=== PATIENT | male | born 1985 | race Caucasian/White ===

== ENCOUNTER 2016-11-01 01:53 | Emergency (ER) | payer OTHER ==
--- NOTE | 2016-11-01 03:54 | ED CLINICAL REPORT ---
Clinical Report - Physicians/Mid Levels [facility] [address] [place] [address] 11/01/2016 1:54 Patient: JIMY ELLISON Arrived- By private vehicle. Historian- patient. HISTORY OF PRESENT ILLNESS Chief Complaint: ABDOMINAL PAIN. At its maximum, severity described as severe. When seen in the E.D., severity described as severe. Modifying factors- worsened by movement. Relieved by rest. This started today and is still present and worsening. It was abrupt in onset and has been waxing/waning but is not gone now. It is described as "pain" and sharp. No radiation. It is described as located in the left flank. The patient has had nausea and vomiting. No loss of appetite or diarrhea. No additional abdominal pain. No recent travel. Similar symptoms previously: None. Recent medical care: Not recently seen/assessed. REVIEW OF SYSTEMS No constipation or black stools. All systems otherwise negative, except as recorded above. PAST HISTORY See nurses notes. Medications: None. Allergies: No Known Drug Allergy. SOCIAL HISTORY Never smoker. History of occasional drug use: marijuana. No alcohol use. Is a local resident. FAMILY HISTORY (states someone in the family may have kidney stones but is not sure). ADDITIONAL NOTES The nursing notes have been reviewed. PHYSICAL EXAM Vital Signs: 11/01/2016 01:59 BP: 146/94. HR: 56. RR: 20. O2 saturation: 100%. Temp: 98 F. Blood pressure normal. Oxygen saturation normal. Appearance: Alert. Oriented X3. Patient in mild distress. (non-toxic). Eyes: Pupils equal, round and reactive to light. Eyes normal inspection. ENT: Ears normal. Nose normal. Pharynx normal. Neck: Normal inspection. Neck supple. CVS: Normal heart rate and rhythm. Heart sounds normal. Pulses normal. Respiratory: No respiratory distress. Breath sounds normal. Chest nontender. Abdomen: Soft and nontender. Bowel sounds normal. No organomegaly. No mass. Back: Normal inspection. Mild CVA tenderness on the left. (no midline tenderness or overlying skin changes). Skin: Skin warm and dry. Normal skin color. No rash. Normal skin turgor. Extremities: Extremities exhibit normal ROM. No lower extremity edema. LABS, X-RAYS, AND EKG Abdominal CT: PROCEDURE: CT ABDOMEN/PELVIS W/O CONTRAST INDICATION: ABDOMINAL PAIN TECHNIQUE: Noncontrast axial images with sagittal and coronal reformations. Preliminary report provided by Jolly Alicia MD ([facility]). COMPARISON: None. FINDINGS: ABDOMEN: There is mild left hydronephrosis and hydroureter with a 1.5 mm calculus which is now located the urinary bladder. There is a 0.5 mm nonobstructing left renal calculus. Right kidney and ureter are normal. Gallbladder, liver, spleen, pancreas, and aorta are normal. Bowel pattern is normal. Appendix is not identified, but no evidence of inflammatory process. PELVIS: Pelvic structures are normal. IMPRESSION: 1. There is mild left hydronephrosis and hydroureter secondary to a 1.5 mm calculus which has now passed into the urinary bladder. Study type: abdomen and pelvis. Abdominal CT performed without contrast. The study was independently viewed by me, interpreted by the radiologist and discussed with the radiologist. Laboratory Tests: UA-Culture if indicated: (WILLEM: 11/01/2016 02:20) ( MsgRcvd 11/01/2016 02:41) Final results Test Result Flag Units (Reference) URINE COLOR YELLOW URINE APPEARANCE CLEAR URINE GLUCOSE NEGATIVE (NEGATIVE) URINE BILIRUBIN NEGATIVE (NEGATIVE) URINE KETONE NEGATIVE (NEGATIVE) URINE SPECIFIC GRAVITY >= 1.030 (1.010-1.030) URINE PH 6.0 (5.0-8.0) URINE PROTEIN NEGATIVE (NEGATIVE) URINE UROBILINOGEN 0.2 EU/dL (0.2-1.0) URINE NITRITE NEGATIVE (NEGATIVE) URINE BLOOD 3+ (NEGATIVE) URINE LEUK ESTERASE NEGATIVE (NEGATIVE) URINE RBC 1-3 rbc/hpf (0-1) URINE WBC RARE wbc/hpf (0-1) URINE EPITHELIAL CELLS NONE SEEN EPI/hpf (0-5) URINE BACTERIA NONE SEEN (NONE SEEN) URINE COMMENT CULT NOT INDICATED 3+ MUCUSURINE CULTURES ARE SET-UP BASED ON THE FOLLOWING CRITERIA:POSITIVE NITRITEPOSITIVE LEUKOCYTE ESTERASEGREATER THAN 10 WHITE BLOOD CELLSMODERATE (2+) OR GREATER BACTERIA CBC w Diff: (WILLEM: 11/01/2016 02:20) ( MsgRcvd 11/01/2016 02:38) Final results Test Result Flag Units (Reference) WHITE BLOOD COUNT 7.8 K/uL (4.5-11.5) RED BLOOD COUNT 5.09 M/uL (4.50-5.90) HEMOGLOBIN 15.0 gm/dL (13.5-17.5) HEMATOCRIT 44.5 % (41.0-53.0) MEAN CELL VOLUME 88 fL (80-100) MEAN CORPUSCULAR HGB 30 pg (26-34) MEAN CORPUSCULAR HGB CONC 34 g/dL (31-37) RED CELL DISTRIBUTION WIDTH 12.3 % (11.6-14.8) PLATELET COUNT 201 K/uL (150-400) NEUTROPHIL % 56.2 % (50-75) LYMPH % 30.4 % (25-40) MONO % 7.3 % (3-14) EOSINOPHIL % 5.6 H % (0-4) BASOPHIL % 0.5 % (0-2) BMP: (WILLEM: 11/01/2016 02:20) ( MsgRcvd 11/01/2016 02:42) Final results Test Result Flag Units (Reference) GLUCOSE 121 H mg/dL (70-110) BUN 15 mg/dL (7-18) CREATININE 1.0 mg/dL (0.6-1.3) Estimated GFR >60 mL/min Estimated GFR- >60 mL/min Note: Persistent reduction over 3 months in eGFR<60 mL/min/1.73 m2 defines CKD. Patients with eGFR values>=60 mL/min/1.73 m2 may also have CKD if evidence ofpersistent proteinuria. Additional information may be foundat www.kidney.org. SODIUM 141 mmol/L (136-145) POTASSIUM 3.4 L mmol/L (3.5-5.1) CHLORIDE 103 mmol/L (98-107) CARBON DIOXIDE 29 mmol/L (21-32) CALCIUM 9.3 mg/dL (8.5-10.1) . PROGRESS AND PROCEDURES Course of Care: the patient is a pleasant 31-year-old male with no pending past medical history presenting for revised and left-sided flank pain. Working diagnosis at this time is renal colic. We'll also evaluate for urinary tract infection, or other causes for the patient's left-sided flank pain. Do not feel patient has abdominal aortic aneurysm. Signs and symptoms are not consistent with thispathology. Patient is agreeable to the treatment plan. Medications for the nausea and pain and been ordered. Workup shows patient to have passed a 1.5 mm calculus. There is residual hydronephrosis and hydroureter in the left side of the urinary tract. Patient reports significant improvement of pain. Urinalysis also shows hematuria. Had discussion with patient in regards to the symptoms of his pain today. Because the patient's pain has been controlled and patient is found to have stone, did not feel patient needs to be admittedor car further emergency department evaluation or workup. Referral for urology provided. Patient is to have the hematuria evaluated again. Discussed the patient workup, diagnosis, home care, follow-up, and return depressions. All questions answered. The patient expressed understanding of these instructions and was agreeable to them. Disposition: Discharged. Condition: good. CLINICAL IMPRESSION Microscopic hematuria (acute). Ureterolithiasis (single stone) in the left ureter with hydronephrosis. INSTRUCTIONS Warnings: GENERAL WARNINGS: Return or contact your physician immediately if your condition worsens or changes unexpectedly, if not improving as expected, or if other problems arise. SPECIFICALLY, return if you develop pain, fever, vomiting, the inability to keep fluids down, blood in vomitus, blood in diarrhea, fainting or lightheadedness. Your Current Medications: CONTINUE TAKING THE FOLLOWING MEDICATIONS: None*. Prescription Medications: Motrin 600 mg tablets: take 1 tablet orally every 6 hours as needed for pain. Dispense thirty (30). No refill. Substitution is permissible. (take with food) Percocet 5 mg/325 mg: take 1 tablet orally every 6 hours as needed for pain. Dispense fifteen (15). No refill. Substitution is permissible. Follow-up: Return to the emergency department as needed. Follow up with your doctor in three days. Reason for referral: recheck today's concerns. Summary of care provided to patient via paper. Screening today revealed the patient's blood pressure to be in the normal range. The patient should follow up with a primary care provider for blood pressure management. Understanding of the discharge instructions verbalized by patient. Follow-up with: Ra Hall MD, Urology, , [address] [place] [address], [id number] Follow up in one week. Reason for referral: recheck today's concerns. Summary of care provided to patient via paper. (Electronically signed by Eliseo Timmons Dr. 11/05/2016 5:03)
--- NOTE | 2016-11-01 03:55 | ED NURSING NOTES ---
Clinical Report - Nurses [facility] [address] [place] [address] 11/01/2016 1:54 Patient: JIMY ELLISON TRIAGE Triage time 0159. Acuity: LEVEL 3. Chief Complaint: NAUSEA and VOMITING and FLANK PAIN. --02:03 Desmond Kay R.N. 01:59 11/01/16. BP: 146/94. HR: 56. RR: 20. O2 saturation: 100%. Temp: 98 F. Pain level now 07/27. --02:03 Desmond Kay R.N. Weight: 74.8 kg stated. Height/Length: 72 inches Per Patient. BMI: 22.4. --02:01 Desmond Kay R.N. Medications None. --02:00 Desmond Kay R.N. Allergies No Known Drug Allergy. --02:00 Desmond Kay R.N. History Arrived by private vehicle. Historian: patient. Unaccompanied. This started just prior to arrival. He has had nausea and vomiting. Last oral intake by patient was (1 hours ago). 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 SOCIAL HX: History of drug use: marijuana. FALL RISK ASSESSMENT: Fall risk assessment completed. No fall risk identified. NUTRITIONAL RISK ASSESSMENT: The nutritional risk assessment revealed no deficiencies. FUNCTIONAL ASSESSMENT: Functional assessment: no impairments noted. LEARNING NEEDS ASSESSMENT: The learning needs assessment revealed no barriers. SKIN INTEGRITY ASSESSMENT: Skin integrity risk assessment completed. No skin integrity risk identified. --02:03 Desmond Kay R.N. PROBLEMS: Nephrolithiasis. --02:01 Desmond Kay R.N. ADDITIONAL SURGERIES: Appendectomy. --02:01 Desmond Kay R.N. Interventions ID band on patient. --02:03 Desmond Kay R.N. PHYSICAL ASSESSMENT GENERAL / NEURO / PSYCH: Alert. Oriented X 4. Appears in distress. HEENT: Mucous membranes are pink. RESPIRATORY: Respirations not labored. Breath sounds within normal limits. CVS: Capillary refill less than 2 seconds. GI / : Abdomen soft. SKIN: Skin is warm and dry. --02:03 Desmond Kay R.N. Ambulatory to room. --02: Desmond Kay R.N. NURSING PROGRESS NOTES Head of bed elevated. Reassurance given. Patient identifiers checked. Call light placed in reach. Bed placed in lowest position. Brakes of bed on. --02: Desmond Kay R.N. 02:11/01/2016 Site #1 started via IV in the left antecubital space with an 18g angiocath, with aseptic technique and good blood return; one attempt. Blood drawn: rainbow set. Labeled in the presence of the patient and sent to the lab. Saline lock flushed with saline. --02: Desmond Kay R.N. 02:11/01/2016 Zofran (Ondansetron HCl) IVP 4 mg given. via site #1. Allergies verified and confirmed 5 rights. IV patency established. IV site checked: no pain, redness, or swelling. IV flushed thoroughly pre- and post-medication administration. --: Desmond Kay R.N. 02:11/01/2016 Morphine IVP 4 mg given. via site #1. Allergies verified, confirmed 5 rights and sedative warning given to the patient. IV patency established. IV site checked: no pain, redness, or swelling. IV flushed thoroughly pre- and post-medication administration. --: Desmond Kay R.N. 02:11/01/2016 Started bag #1 1000 mL IV Fluids IV NS (Saline); bolus of 1000 mL wide open via site #1. Allergies verified and confirmed 5 rights. IV patency established. IV site checked: no pain, redness, or swelling. IV flushed thoroughly pre- and post-medication administration. --02: Desmond Kay R.N. 03:07 11/01/2016 Toradol IVP 30 mg given. via site #1. Allergies verified and confirmed 5 rights. IV patency established. IV site checked: no pain, redness, or swelling. IV flushed thoroughly pre- and post-medication administration. --03:07 Desmond Kay R.N. DISPOSITION / DISCHARGE 04:09 11/01/2016 Site #1 removed upon discharge. Pressure dressing applied. --04:09 Desmond Kay R.N. Departure time: 0405. No learning barriers present. Discharge instructions provided and reviewed with the patient. Reviewed warnings. Reviewed medication(s). Treatments reviewed. Reviewed referrals. Reviewed diet. Patient verbalized understanding. Written instructions provided in Andorran. The patient was discharged by the physician. He was discharged home and unaccompanied at time of discharge. He left the Emergency Department ambulatory and via private vehicle. Patient driving. --04:10 Desmond Kay R.N. Condition at departure: improved. --04:10 Desmond Kay R.N. FALL RISK ASSESSMENT: Fall risk assessment completed. No fall risk identified. --04:10 Desmond Kay R.N. Locked/Released at 11/01/2016 4:10 by Desmond Kay R.N.
--- NOTE | 2016-11-01 03:55 | ED NURSING NOTES ---
Clinical Report - Nurses [facility] [address] [place] [address] 11/01/2016 1:54 Patient: JIMY ELLISON TRIAGE Triage time 0159. Acuity: LEVEL 3. Chief Complaint: NAUSEA and VOMITING and FLANK PAIN. --02:03 Desmond Kay R.N. 01:59 11/01/16. BP: 146/94. HR: 56. RR: 20. O2 saturation: 100%. Temp: 98 F. Pain level now 07/27. --02:03 Desmond Kay R.N. Weight: 74.8 kg stated. Height/Length: 72 inches Per Patient. BMI: 22.4. --02:01 Desmond Kay R.N. Medications None. --02:00 Desmond Kay R.N. Allergies No Known Drug Allergy. --02:00 Demsond Kay R.N. History Arrived by private vehicle. Historian: patient. Unaccompanied. This started just prior to arrival. He has had nausea and vomiting. Last oral intake by patient was (1 hours ago). 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 SOCIAL HX: History of drug use: marijuana. FALL RISK ASSESSMENT: Fall risk assessment completed. No fall risk identified. NUTRITIONAL RISK ASSESSMENT: The nutritional risk assessment revealed no deficiencies. FUNCTIONAL ASSESSMENT: Functional assessment: no impairments noted. LEARNING NEEDS ASSESSMENT: The learning needs assessment revealed no barriers. SKIN INTEGRITY ASSESSMENT: Skin integrity risk assessment completed. No skin integrity risk identified. --02:03 Desmond Kay R.N. PROBLEMS: Nephrolithiasis. --02:01 Desmond Kay R.N. ADDITIONAL SURGERIES: Appendectomy. --02:01 Desmond Kay R.N. Interventions ID band on patient. --02:03 Desmond Kay R.N. PHYSICAL ASSESSMENT GENERAL / NEURO / PSYCH: Alert. Oriented X 4. Appears in distress. HEENT: Mucous membranes are pink. RESPIRATORY: Respirations not labored. Breath sounds within normal limits. CVS: Capillary refill less than 2 seconds. GI / : Abdomen soft. SKIN: Skin is warm and dry. --02:03 Desmond Kay R.N. Ambulatory to room. --02: Desmond Kya R.N. NURSING PROGRESS NOTES Head of bed elevated. Reassurance given. Patient identifiers checked. Call light placed in reach. Bed placed in lowest position. Brakes of bed on. --02: Desmond Kay R.N. 02:11/01/2016 Site #1 started via IV in the left antecubital space with an 18g angiocath, with aseptic technique and good blood return; one attempt. Blood drawn: rainbow set. Labeled in the presence of the patient and sent to the lab. Saline lock flushed with saline. --02: Desmond Kay R.N. 02:11/01/2016 Zofran (Ondansetron HCl) IVP 4 mg given. via site #1. Allergies verified and confirmed 5 rights. IV patency established. IV site checked: no pain, redness, or swelling. IV flushed thoroughly pre- and post-medication administration. --: Desmond Kay R.N. 02:11/01/2016 Morphine IVP 4 mg given. via site #1. Allergies verified, confirmed 5 rights and sedative warning given to the patient. IV patency established. IV site checked: no pain, redness, or swelling. IV flushed thoroughly pre- and post-medication administration. --: Desmond Kay R.N. 02:11/01/2016 Started bag #1 1000 mL IV Fluids IV NS (Saline); bolus of 1000 mL wide open via site #1. Allergies verified and confirmed 5 rights. IV patency established. IV site checked: no pain, redness, or swelling. IV flushed thoroughly pre- and post-medication administration. --02: Desmond Kay R.N. 03:07 11/01/2016 Toradol IVP 30 mg given. via site #1. Allergies verified and confirmed 5 rights. IV patency established. IV site checked: no pain, redness, or swelling. IV flushed thoroughly pre- and post-medication administration. --03:07 Desmond Kay R.N. DISPOSITION / DISCHARGE 04:09 11/01/2016 Site #1 removed upon discharge. Pressure dressing applied. --04:09 Desmond Kay R.N. Departure time: 0405. No learning barriers present. Discharge instructions provided and reviewed with the patient. Reviewed warnings. Reviewed medication(s). Treatments reviewed. Reviewed referrals. Reviewed diet. Patient verbalized understanding. Written instructions provided in Solomon Islander. The patient was discharged by the physician. He was discharged home and unaccompanied at time of discharge. He left the Emergency Department ambulatory and via private vehicle. Patient driving. --04:10 Desmond Kay R.N. Condition at departure: improved. --04:10 Desmond Kay R.N. FALL RISK ASSESSMENT: Fall risk assessment completed. No fall risk identified. --04:10 Desmond Kay R.N. Locked/Released at 11/01/2016 4:10 by Desmond Kay R.N.
--- NOTE | 2016-11-01 03:55 | ED ORDER SUMMARY ---
..... Patient: JIMY ELLISON OrderSheet [facility] VisitID: [id number] [address] [place] [address] 31y, M Registration Date/Time: 11/01/2016 ORDER SHEET Weight: 74.8 kg (stated) Allergies: No Known Drug Allergy GENERAL ORDERS: CT Abd/Pel wo Cont Urgent (02:12 11/01/2016 Clinton Orellana) (2:32 RFay) CBC w Diff Urgent (02:11/01/2016 Clinton Orellana) (2:26 Eleazar R.N.) BMP Urgent (02:11/01/2016 Clinton Orellana) (2:26 Eleazar R.N.) UA-Culture if indicated Urgent (02:11/01/2016 Clinton Orellana) (2:26 Eleazar Dan.N.) Pulse oximeter (02:11/01/2016 Clinton Orellana) (2:26 Eleazar R.N.) MEDICATION ORDERS: IV FLUIDS: IV NS : initial bolus 1000 mL (1000 mL/hr), then none - for X1 (NOW) (02:11 11/01/2016 Clinton Orellana) (2:27 Eleazar R.N.) Morphine IV 4 mg (HIGH ALERT MEDICATION, NOW) (02:12 11/01/2016 Clinton Orellana) (2:27 Eleazar R.N.) Zofran IV 4 mg (NOW) (02:12 11/01/2016 Clinton Orellana) (2:27 Eleazar R.N.) Toradol IV 30 mg (NOW) (03:06 11/01/2016 Clinton Orellana) (3:07 Eleazar R.N.) ORDER SHEET NOTES: [Electronically signed by Desmond Kay R.N. (04:11/01/2016)] [Electronically signed by Eliseo Timmons Dr. (05:03 11/05/2016)] [Electronically locked/signed by Desmond Kay R.N. (04:11/01/2016)]
--- NOTE | 2016-11-01 03:55 | ED ORDER SUMMARY ---
..... Patient: JIMY LELISON OrderSheet [facility] VisitID: [id number] [address] [place] [address] 31y, M Registration Date/Time: 11/01/2016 ORDER SHEET Weight: 74.8 kg (stated) Allergies: No Known Drug Allergy GENERAL ORDERS: CT Abd/Pel wo Cont Urgent (02:12 11/01/2016 Clinton Orellana) (2:32 RFay) CBC w Diff Urgent (02:11/01/2016 Clinton Orellana) (2:26 Eleazar R.N.) BMP Urgent (02:11/01/2016 Clinton Orellana) (2:26 Eleazar R.N.) UA-Culture if indicated Urgent (02:11/01/2016 Clinton Orellana) (2:26 Eleazar Dan.N.) Pulse oximeter (02:11/01/2016 Clinton Orellana) (2:26 Eleazar R.N.) MEDICATION ORDERS: IV FLUIDS: IV NS : initial bolus 1000 mL (1000 mL/hr), then none - for X1 (NOW) (02:11 11/01/2016 Clinton Orellana) (2:27 Eleazar R.N.) Morphine IV 4 mg (HIGH ALERT MEDICATION, NOW) (02:12 11/01/2016 Clinton Orellana) (2:27 Eleazar R.N.) Zofran IV 4 mg (NOW) (02:12 11/01/2016 Clinton Orellana) (2:27 Eleazar R.N.) Toradol IV 30 mg (NOW) (03:06 11/01/2016 Clinton Orellana) (3:07 Eleazar R.N.) ORDER SHEET NOTES: [Electronically signed by Desmond Kay R.N. (04:11/01/2016)] [Electronically signed by Eliseo Timmons Dr. (05:03 11/05/2016)] [Electronically locked/signed by Desmond Kay R.N. (04:11/01/2016)]
--- NOTE | 2016-11-01 05:40 | DIAGNOSTIC IMAGING REPORT ---
PROCEDURE: CT ABDOMEN/PELVIS W/O CONTRAST INDICATION: ABDOMINAL PAIN TECHNIQUE: Noncontrast axial images with sagittal and coronal reformations. Preliminary report provided by Jolly Alicia MD ([facility]). COMPARISON: None. FINDINGS: ABDOMEN: There is mild left hydronephrosis and hydroureter with a 1.5 mm calculus which is now located the urinary bladder. There is a 0.5 mm nonobstructing left renal calculus. Right kidney and ureter are normal. Gallbladder, liver, spleen, pancreas, and aorta are normal. Bowel pattern is normal. Appendix is not identified, but no evidence of inflammatory process. PELVIS: Pelvic structures are normal. IMPRESSION: 1. There is mild left hydronephrosis and hydroureter secondary to a 1.5 mm calculus which has now passed into the urinary bladder. 2. Findings discussed Dr. Eliseo Timmons. All CT scans at this facility use dose modulation, iterative reconstruction, and/or weight-based dosing when appropriate to reduce radiation dose to as low as reasonably achievable.
--- NOTE | 2016-11-01 05:40 | DIAGNOSTIC IMAGING REPORT ---
PROCEDURE: CT ABDOMEN/PELVIS W/O CONTRAST INDICATION: ABDOMINAL PAIN TECHNIQUE: Noncontrast axial images with sagittal and coronal reformations. Preliminary report provided by Jolly Alicia MD ([facility]). COMPARISON: None. FINDINGS: ABDOMEN: There is mild left hydronephrosis and hydroureter with a 1.5 mm calculus which is now located the urinary bladder. There is a 0.5 mm nonobstructing left renal calculus. Right kidney and ureter are normal. Gallbladder, liver, spleen, pancreas, and aorta are normal. Bowel pattern is normal. Appendix is not identified, but no evidence of inflammatory process. PELVIS: Pelvic structures are normal. IMPRESSION: 1. There is mild left hydronephrosis and hydroureter secondary to a 1.5 mm calculus which has now passed into the urinary bladder. 2. Findings discussed Dr. Eliseo Timmons. All CT scans at this facility use dose modulation, iterative reconstruction, and/or weight-based dosing when appropriate to reduce radiation dose to as low as reasonably achievable.
--- NOTE | 2016-11-05 05:03 | ED MAR SUMMARY ---
..... Medication Administration Record [facility] [address] [place] [address] Patient: JIMY ELLISON Visit ID: [id number] 31y, M Weight: 74.8 kg Height/Length: 72 in BMI: 22.4 ALLERGIES: No Known Drug Allergy Start 02:11/01/2016 Desmond Kay R.N. Medication Administered: IV NS (SALINE), Dose: IV Fluids, Bolus: 1000 mL wide open, Dispensed: 1000 mL bag, Site: #1 left AC. Medication Ordered: IV NS : initial bolus 1000 mL (1000 mL/hr), then none - for X1 (NOW). Given 02:11/01/2016 Desmond Kay R.N. Medication Administered: MORPHINE [IVP], Dose: 4 mg IVP, Site: #1 left AC. Medication Ordered: Morphine IV 4 mg (HIGH ALERT MEDICATION, NOW). Given 02:11/01/2016 Desmond Kay R.N. Medication Administered: ZOFRAN [IVP] (ONDANSETRON HCL), Dose: 4 mg IVP, Site: #1 left AC. Medication Ordered: Zofran IV 4 mg (NOW). Given 03:11/01/2016 Desmond Kay R.N. Medication Administered: TORADOL [IVP], Dose: 30 mg IVP, Site: #1 left AC. Medication Ordered: Toradol IV 30 mg (NOW).
--- NOTE | 2016-11-05 05:03 | ED DISCHARGE INSTRUCTIONS ---
Patient: JIMY ELLISON General Instructions [facility] VisitID: [id number] [place] [address] 31y, M Registration Date/Time: 11/01/2016 Microscopic hematuria (acute). Ureterolithiasis (single stone) in the left ureter with hydronephrosis. INSTRUCTIONS Warnings: GENERAL WARNINGS: Return or contact your physician immediately if your condition worsens or changes unexpectedly, if not improving as expected, or if other problems arise. SPECIFICALLY, return if you develop pain, fever, vomiting, the inability to keep fluids down, blood in vomitus, blood in diarrhea, fainting or lightheadedness. Your Current Medications: CONTINUE TAKING THE FOLLOWING MEDICATIONS: None*. Prescription Medications: Motrin 600 mg tablets: take 1 tablet orally every 6 hours as needed for pain. Dispense thirty (30). No refill. Substitution is permissible. (take with food) Percocet 5 mg/325 mg: take 1 tablet orally every 6 hours as needed for pain. Dispense fifteen (15). No refill. Substitution is permissible. Follow-up: Return to the emergency department as needed. Follow up with your doctor in three days. Reason for referral: recheck today's concerns. Summary of care provided to patient via paper. Screening today revealed the patient's blood pressure to be in the normal range. The patient should follow up with a primary care provider for blood pressure management. Understanding of the discharge instructions verbalized by patient. Follow-up with: Ra Hall MD, Urology, , [address] [place], [place] [id number] Follow up in one week. Reason for referral: recheck today's concerns. Summary of care provided to patient via paper. ADDITIONAL INFORMATION Blood In The Urine Blood in the urine ("hematuria") has many possible causes. If it occurs after an injury (such as a car accident or fall), it is most often a sign of bruising to the kidney or bladder. Common medical causes of blood in the urine include urinary tract infection, kidney stone, inflammation, tumors, or certain other diseases of the kidney or bladder. Menstruation can cause blood to appear in the urine sample, although it is not coming from the urinary tract. If only a trace amount of blood is present, it will show up on the urine test, even though the urine may be yellow and not pink or red. This may occur with any of the above conditions, as well as heavy exercise or high fever. In this case, your doctor may want to repeat the urine test on another day. This will show if the blood is still present. If so, then other tests can be done to find out the cause. Home Care: If your urine does not appear bloody (pink, brown or red) then you do not need to restrict your activity in any way. If you can see blood in your urine, rest and avoid heavy exertion until your next exam. Do not use aspirin or anti-inflammatory medicine like ibuprofen (Motrin, Advil) or naproxen (Naprosyn, Aleve). These thin the blood and may increase bleeding. Follow Up with your doctor or as advised by our staff. If you were injured and had blood in your urine, you should have a repeat urine test in 1-2 days. Contact your doctor or return to this facility for this test. [NOTE: A radiologist will review any X-rays that were taken. We will notify you of any new findings that may affect your care.] Get Prompt Medical Attention if any of the following occur: Bright red blood or blood clots in the urine (if a new symptom) Weakness, dizziness or fainting New groin, abdominal or back pain Fever of 100.4F (38C) or higher, or as directed by your healthcare provider Repeated vomiting Bleeding from nose, gums or easy bruising Ibuprofen Oral tablet What is this medicine? IBUPROFEN (eye BYOO proe fen) is a non-steroidal anti-inflammatory drug (NSAID). It is used for dental pain, fever, headaches or migraines, osteoarthritis, rheumatoid arthritis, or painful monthly periods. It can also relieve minor aches and pains caused by a cold, flu, or sore throat. How should I use this medicine? Take this medicine by mouth with a glass of water. Follow the directions on the prescription label. Take this medicine with food if your stomach gets upset. Try to not lie down for at least 10 minutes after you take the medicine. Take your medicine at regular intervals. Do not take your medicine more often than directed. A special MedGuide will be given to you by the pharmacist with each prescription and refill. Be sure to read this information carefully each time. Talk to your plant breeder regarding the use of this medicine in children. Special care may be needed. What side effects may I notice from receiving this medicine? Side effects that you should report to your doctor or health urgent care physician assistant as soon as possible: allergic reactions like skin rash, itching or hives, swelling of the face, lips, or tongue black or bloody stools, blood in the urine or in vomit breathing problems changes in vision chest pain general ill feeling or flu-like symptoms nausea or vomiting redness, blistering, peeling or loosening of the skin, including inside the mouth slurred speech or weakness on one side of the body stomach pain unexplained weight gain or swelling unusually weak or tired yellowing of eyes or skin Side effects that usually do not require medical attention (report to your doctor or health urgent care physician assistant if they continue or are bothersome): constipation or diarrhea dizziness gas or heartburn stomach upset What may interact with this medicine? Do not take this medicine with any of the following medications: cidofovir ketorolac methotrexate pemetrexed This medicine may also interact with the following medications: alcohol aspirin diuretics lithium other drugs for inflammation like prednisone warfarin What if I miss a dose? If you miss a dose, take it as soon as you can. If it is almost time for your next dose, take only that dose. Do not take double or extra doses. Where should I keep my medicine? Keep out of the reach of children. Store at room temperature between 15 and 30 degrees C (59 and 86 degrees F). Keep container tightly closed. Throw away any unused medicine after the expiration date. What should I tell my health care provider before I take this medicine? They need to know if you have any of these conditions: asthma cigarette smoker drink more than 3 alcohol containing drinks a day heart disease or circulation problems such as heart failure or leg edema (fluid retention) high blood pressure kidney disease liver disease stomach bleeding or ulcers an unusual or allergic reaction to ibuprofen, aspirin, other NSAIDS, other medicines, foods, dyes, or preservatives or trying to get breast-feeding What should I watch for while using this medicine? Tell your doctor or healthcare professional if your symptoms do not start to get better or if they get worse. This medicine does not prevent heart attack or stroke. In fact, this medicine may increase the chance of a heart attack or stroke. The chance may increase with longer use of this medicine and in people who have heart disease. If you take aspirin to prevent heart attack or stroke, talk with your doctor or health urgent care physician assistant. Do not take other medicines that contain aspirin, ibuprofen, or naproxen with this medicine. Side effects such as stomach upset, nausea, or ulcers may be more likely to occur. Many medicines available without a prescription should not be taken with this medicine. This medicine can cause ulcers and bleeding in the stomach and intestines at any time during treatment. Ulcers and bleeding can happen without warning symptoms and can cause . To reduce your risk, do not smoke cigarettes or drink alcohol while you are taking this medicine. You may get drowsy or dizzy. Do not drive, use machinery, or do anything that needs mental alertness until you know how this medicine affects you. Do not stand or sit up quickly, especially if you are an older patient. This reduces the risk of dizzy or fainting spells. This medicine can cause you to bleed more easily. Try to avoid damage to your teeth and gums when you brush or floss your teeth. Oxycodone Hydrochloride, Acetaminophen Oral tablet What is this medicine? ACETAMINOPHEN; OXYCODONE (a set a ANASTASIA jannie fen; ox i KOE done) is a pain reliever. It is used to treat mild to moderate pain. How should I use this medicine? Take this medicine by mouth with a full glass of water. Follow the directions on the prescription label. Take your medicine at regular intervals. Do not take your medicine more often than directed. Talk to your plant breeder regarding the use of this medicine in children. Special care may be needed. Patients over 65 years old may have a stronger reaction and need a smaller dose. What side effects may I notice from receiving this medicine? Side effects that you should report to your doctor or health urgent care physician assistant as soon as possible: allergic reactions like skin rash, itching or hives, swelling of the face, lips, or tongue breathing difficulties, wheezing confusion light headedness or fainting spells severe stomach pain yellowing of the skin or the whites of the eyes Side effects that usually do not require medical attention (report to your doctor or health urgent care physician assistant if they continue or are bothersome): dizziness drowsiness nausea vomiting What may interact with this medicine? alcohol antihistamines barbiturates like amobarbital, butalbital, butabarbital, methohexital, pentobarbital, phenobarbital, thiopental, and secobarbital benztropine drugs for bladder problems like solifenacin, trospium, oxybutynin, tolterodine, hyoscyamine, and methscopolamine drugs for breathing problems like ipratropium and tiotropium drugs for certain stomach or intestine problems like propantheline, homatropine methylbromide, glycopyrrolate, atropine, belladonna, and dicyclomine general anesthetics like etomidate, ketamine, nitrous oxide, propofol, desflurane, enflurane, halothane, isoflurane, and sevoflurane medicines for depression, anxiety, or psychotic disturbances medicines for sleep muscle relaxants naltrexone narcotic medicines (opiates) for pain phenothiazines like perphenazine, thioridazine, chlorpromazine, mesoridazine, fluphenazine, prochlorperazine, promazine, and trifluoperazine scopolamine tramadol trihexyphenidyl What if I miss a dose? If you miss a dose, take it as soon as you can. If it is almost time for your next dose, take only that dose. Do not take double or extra doses. Where should I keep my medicine? Keep out of the reach of children. This medicine can be abused. Keep your medicine in a safe place to protect it from theft. Do not share this medicine with anyone. Selling or giving away this medicine is dangerous and against the law. Store at room temperature between 20 and 25 degrees C (68 and 77 degrees F). Keep container tightly closed. Protect from light. This medicine may cause accidental overdose and if it is taken by other adults, children, or pets. Flush any unused medicine down the toilet to reduce the chance of harm. Do not use the medicine after the expiration date. What should I tell my health care provider before I take this medicine? They need to know if you have any of these conditions: brain tumor Crohn's disease, inflammatory bowel disease, or ulcerative colitis drink more than 3 alcohol containing drinks per day drug abuse or addiction head injury heart or circulation problems kidney disease or problems going to the bathroom liver disease lung disease, asthma, or breathing problems an unusual or allergic reaction to acetaminophen, oxycodone, other opioid analgesics, other medicines, foods, dyes, or preservatives or trying to get breast-feeding What should I watch for while using this medicine? Tell your doctor or health urgent care physician assistant if your pain does not go away, if it gets worse, or if you have new or a different type of pain. You may develop tolerance to the medicine. Tolerance means that you will need a higher dose of the medication for pain relief. Tolerance is normal and is expected if you take this medicine for a long time. Do not suddenly stop taking your medicine because you may develop a severe reaction. Your body becomes used to the medicine. This does NOT mean you are addicted. Addiction is a behavior related to getting and using a drug for a non-medical reason. If you have pain, you have a medical reason to take pain medicine. Your doctor will tell you how much medicine to take. If your doctor wants you to stop the medicine, the dose will be slowly lowered over time to avoid any side effects. You may get drowsy or dizzy. Do not drive, use machinery, or do anything that needs mental alertness until you know how this medicine affects you. Do not stand or sit up quickly, especially if you are an older patient. This reduces the risk of dizzy or fainting spells. Alcohol may interfere with the effect of this medicine. Avoid alcoholic drinks. There are different types of narcotic medicines (opiates) for pain. If you take more than one type at the same time, you may have more side effects. Give your health care provider a list of all medicines you use. Your doctor will tell you how much medicine to take. Do not take more medicine than directed. Call emergency for help if you have problems breathing. The medicine will cause constipation. Try to have a bowel movement at least every 2 to 3 days. If you do not have a bowel movement for 3 days, call your doctor or health urgent care physician assistant. Do not take Tylenol (acetaminophen) or medicines that have acetaminophen with this medicine. Too much acetaminophen can be very dangerous. Many nonprescription medicines contain acetaminophen. Always read the labels carefully to avoid taking more acetaminophen. You have been given the following additional information: Hematuria Ibuprofen Oral tablet Oxycodone Hydrochloride, Acetaminophen Oral tablet (Electronically signed by Eliseo Timmons Dr. 11/05/2016 5:03)
--- NOTE | 2016-11-05 05:03 | ED MAR SUMMARY ---
..... Medication Administration Record [facility] [address] [place] [address] Patient: JIMY ELLISON Visit ID: [id number] 31y, M Weight: 74.8 kg Height/Length: 72 in BMI: 22.4 ALLERGIES: No Known Drug Allergy Start 02:11/01/2016 Desmond Kay R.N. Medication Administered: IV NS (SALINE), Dose: IV Fluids, Bolus: 1000 mL wide open, Dispensed: 1000 mL bag, Site: #1 left AC. Medication Ordered: IV NS : initial bolus 1000 mL (1000 mL/hr), then none - for X1 (NOW). Given 02:11/01/2016 Desmond Kay R.N. Medication Administered: MORPHINE [IVP], Dose: 4 mg IVP, Site: #1 left AC. Medication Ordered: Morphine IV 4 mg (HIGH ALERT MEDICATION, NOW). Given 02:11/01/2016 Desmond Kay R.N. Medication Administered: ZOFRAN [IVP] (ONDANSETRON HCL), Dose: 4 mg IVP, Site: #1 left AC. Medication Ordered: Zofran IV 4 mg (NOW). Given 03:11/01/2016 Desmond Kay R.N. Medication Administered: TORADOL [IVP], Dose: 30 mg IVP, Site: #1 left AC. Medication Ordered: Toradol IV 30 mg (NOW).
--- NOTE | 2016-11-05 05:03 | ED MED RECONCILIATION SUMMARY ---
Patient: ELIZABETRJIMY Medication Reconciliation Report [facility] VisitID: [id number] [address] [place] [address] 31y, M Registration Date/Time: 11/01/2016 Weight: 74.8 kg Height/Length: 72 in. BMI: 22.4 ALLERGIES: No Known Drug Allergy The patient's Home Medications are listed below: NONE. The source(s) of the original Home Medication information: Not obtained. The following Medications were given to the patient in the Emergency Department: Zofran [IVP] IVP 4 mg, administered: 11/01/2016 2:27:00 AM Morphine [IVP] IVP 4 mg, administered: 11/01/2016 2:27:00 AM IV NS IV Fluids bolus 1000 mL wide open, administered: 11/01/2016 2:27:00 AM Toradol [IVP] IVP 30 mg, administered: 11/01/2016 3:07:00 AM The following Medications were prescribed to the patient: Motrin 600 mg tablets: take 1 tablet orally every 6 hours as needed for pain. Dispense thirty (30). No refill. Substitution is permissible.(take with food) -- Eliseo Timmons Dr. Percocet 5 mg/325 mg: take 1 tablet orally every 6 hours as needed for pain. Dispense fifteen (15). No refill. Substitution is permissible. -- Eliseo Timmons Dr.
--- NOTE | 2016-11-05 05:03 | ED MED RECONCILIATION SUMMARY ---
Patient: ELIZABETRJIMY Medication Reconciliation Report [facility] VisitID: [id number] [address] [place] [address] 31y, M Registration Date/Time: 11/01/2016 Weight: 74.8 kg Height/Length: 72 in. BMI: 22.4 ALLERGIES: No Known Drug Allergy The patient's Home Medications are listed below: NONE. The source(s) of the original Home Medication information: Not obtained. The following Medications were given to the patient in the Emergency Department: Zofran [IVP] IVP 4 mg, administered: 11/01/2016 2:27:00 AM Morphine [IVP] IVP 4 mg, administered: 11/01/2016 2:27:00 AM IV NS IV Fluids bolus 1000 mL wide open, administered: 11/01/2016 2:27:00 AM Toradol [IVP] IVP 30 mg, administered: 11/01/2016 3:07:00 AM The following Medications were prescribed to the patient: Motrin 600 mg tablets: take 1 tablet orally every 6 hours as needed for pain. Dispense thirty (30). No refill. Substitution is permissible.(take with food) -- Eliseo Timmons Dr. Percocet 5 mg/325 mg: take 1 tablet orally every 6 hours as needed for pain. Dispense fifteen (15). No refill. Substitution is permissible. -- Eliseo Timmons Dr.
== END 2016-11-01 04:05 | disposition home or self-care (01) ==
LOC: ED SRH 01:53
DX: N20.1 Calculus of ureter (principal); N13.1 Hydronephrosis with ureteral stricture, not elsewhere classified; R31.29 Other microscopic hematuria
CPT/HCPCS: 90004; 90047; 95059